=== PATIENT | female | born 1990 | race Caucasian/White ===

== ENCOUNTER 2023-06-26 07:04 | Inpatient (IN) ==
[2023-06-26] MEDS ORDERED: Lidocaine 1% VIAL 10 MG/ML 30 ML VIAL INJ PRN (08:30)
[2023-06-26] MEDS ORDERED: Ondansetron 4 mg VIAL 2 MG/ML 2 ml VIAL IV PRN ×2 (08:36→19:44)
[2023-06-26 09:06] LABS: ABS Eosinophils 0.1 10^3/uL (0.0-0.5); ABS Lymphocytes 1.2 10^3/uL (1.0-4.8); ABS Monocytes 0.6 10^3/uL (0.0-0.9); ABS Neutrophils 6.1 10^3/uL (1.5-7.6); Eosinophil % 1.2 %; Hemoglobin 13.2 g/dL (11.5-14.3); Mean Corpuscular Hemoglobin 31.5 pg (27-33); Mean Corpuscular Hgb Conc 34.7 g/dL (31-36); Mean Corpuscular Volume 90.9 fL (80-97); Mean Platelet Volume 9.6 fL (7.5-11.2); Nucleated Red Blood Cells % 0.1 %/100WBC (0.0-0.8); Platelet Count 173 10^3/uL (150-450); Red Blood Count 4.18 10^6/uL (3.63-4.92)
[2023-06-26] MEDS: Lactated Ringers 1000 ml BAG 1,000 ML IV SCH (09:08)
[2023-06-26] MEDS: Penicillin G Potassium IV 5,000,000 UNITS in NS 0.9% 100 ml BAG 100 ML IVPB ONE (09:09)
[2023-06-26 09:47] LABS: Urine Benzodiazepine Screen None Detected (None Detect); Urine Cannabinoids Screen None Detected (None Detect); Urine Opiates Screen None Detected (None Detect)
[2023-06-26] MEDS: Penicillin G Potassium IV 3,000,000 UNITS in NS 0.9% 100 ml BAG 100 ML IVPB SCH (13:08)
[2023-06-26] MEDS: Prochlorperazine 5 mg/ml 2 ml VIAL (10 mg) IV PRN (13:37)
[2023-06-26] MEDS ORDERED: Ondansetron 4 mg VIAL 2 MG/ML 2 ml VIAL ONE (18:32)
[2023-06-26] MEDS ORDERED: Morphine PF AMP (0.5MG/ML) 5 MG/10 ML AMP ONE (18:32)
[2023-06-26] MEDS ORDERED: Oxytocin 10 UNITS/ML 1 ML VIAL ONE (18:32)
[2023-06-26] MEDS ORDERED: Phenylephrine IV 10 MG/ML 1 ml VIAL ONE (18:32)
[2023-06-26] MEDS ORDERED: Glycopyrrolate IV 0.2 MG/ML 1 ML VIAL ONE (18:48)
[2023-06-26] MEDS ORDERED: Witch Hazel PAD JAR TOPICAL PRN (19:39)
[2023-06-26] MEDS ORDERED: Glycerin ADULT 2.4 gm SUPP PR PRN (19:39)
[2023-06-26] MEDS ORDERED: Dibucaine 1% OINT 28.35 GM TUBE PR PRN (19:39)
[2023-06-26] MEDS ORDERED: RHO D Immune Globulin (HUMAN) 300 MCG = 1,500 I.U. INJ IM PRN (19:39)
[2023-06-26 19:44] LABS: Urine Appearance Clear; Urine Bilirubin Negative (Negative); Urine Blood Negative (Negative); Urine Color Light-Yellow; Urine Glucose Negative (Negative); Urine Ketones Negative (Negative); Urine Nitrite Negative (Negative); Urine Protein Negative (Negative); Urine Specific Gravity 1.013 (1.002-1.030); Urine Urobilinogen Negative (Negative); Urine pH 6.5 (5.0-8.0)
[2023-06-26] MEDS ORDERED: Naloxone 0.4 mg VIAL 0.4 mg/ml 1 ml VIAL IV PUSH PRN (19:44)
[2023-06-26] MEDS ORDERED: Metoclopramide 5 MG/ML VIAL (10 mg) IV PRN (19:44)
[2023-06-26] MEDS ORDERED: Lactated Ringers 1000 ml BAG 1,000 ML IV SCH (20:00)
[2023-06-26] MEDS: Acetaminophen IV 1 GM/100ML 1,000 MG/100 ML BAG IV PRN (20:21)
[2023-06-26] MEDS: Oxytocin in LR 20,000 MILLI.UNIT/1,000 ML BAG IV SCH ×2 (21:00→22:37)
[2023-06-26] MEDS: Methylergonovine 0.2 mg AMPULE 1 ml AMP IM ONE (22:29)
[2023-06-26] MEDS: ceFOXitin 2 GM IVPREMIX 2 GM/50 ML BAG ONE (22:37)
[2023-06-27] MEDS: Sodium Citrate/Citric Acid LIQ 15 ML UDC ONE (00:21)
[2023-06-27] MEDS: Lactated Ringers 1000 ml BAG 1,000 ML IV ONE (01:16)
[2023-06-27 06:57] LABS: ABS Eosinophils 0.1 10^3/uL (0.0-0.5); ABS Lymphocytes 1.5 10^3/uL (1.0-4.8); ABS Monocytes 0.9 10^3/uL (0.0-0.9); ABS Neutrophils 9.8 10^3/uL (1.5-7.6); ABS Nucleated RBC 0.01 10^3/ul; Eosinophil % 0.9 %; Hematocrit 23.7 % (35-45); Hemoglobin 8.2 g/dL (11.5-14.3); Lymphocyte % 12.1 %; Mean Corpuscular Hemoglobin 31.6 pg (27-33); Mean Corpuscular Hgb Conc 34.8 g/dL (31-36); Mean Corpuscular Volume 90.9 fL (80-97); Mean Platelet Volume 9.3 fL (7.5-11.2); Platelet Count 150 10^3/uL (150-450); Red Cell Distribution Width 12.8 % (12-17); White Blood Count 12.3 10^3/uL (3.8-11.8)
[2023-06-29 08:42] VITALS: BP 111/74
== END 2023-06-29 12:05 | disposition home or self-care (01) | DRG 787 ==
LOC: MCHOBOUT 07:04 → MCHOB 07:12
PROVIDERS: ADMIT Advanced Practice Midwife; ATTEND Advanced Practice Midwife